=== PATIENT | male | born 1955 | race Caucasian/White ===

== ENCOUNTER 2022-10-15 22:11 | Observation (INO) ==
[2022-10-16] MEDS ORDERED: GLUCAGON 1 MG VIAL IM PRN (00:02)
[2022-10-16] MEDS ORDERED: ACETAMINOPHEN 325 MG TABLET PO PRN (00:02)
[2022-10-16] MEDS ORDERED: ONDANSETRON 4 MG/2 ML VIAL IV PRN (00:02)
[2022-10-16] MEDS ORDERED: DEXTROSE 10% 250 ML BAG IV PRN (00:09)
[2022-10-16] MEDS ORDERED: NITROGLYCERIN SL 0.4 MG TABLET SL PRN (01:57)
[2022-10-16] MEDS ORDERED: oxyCODONE/ACETAMINOPHEN 5-325 MG TABLET PO PRN (02:04)
[2022-10-16] MEDS: LEVOTHYROXINE 75 MCG TABLET PO SCH (05:43)
[2022-10-16 07:52] LABS: Basophils # 0.1 10*3/uL (0.0-0.2); Basophils % 0.7 % (0.0-0.8); Eosinophils # 0.2 10*3/uL (0.0-0.87); Eosinophils % 2.7 % (0.00-10.9); Hematocrit 41.6 VOL% (42.0-52.0); Hemoglobin 13.3 GM/DL (14.0-18.0); Immature Granulocytes % 0.4 %; Immature Granulocytes Absolute 0.03 #; Lymphocytes # 2.9 10*3/uL (1.4-4.0); Lymphocytes % 42.1 % (21.2-54.2); Mean Corpuscular Volume 80.3 FL (87-102); Mean Platelet Volume 10.6 FL (9.6-12.0); Monocytes # 0.5 10*3/uL (0.11-0.8); Monocytes % 7.8 % (1.7-12.7); Neutrophils % 46.3 % (38.7-73.9); Platelet Count 196 T/CUMM (130-400); Red Blood Count 5.18 MC/CUMM (3.8-5.5); White Blood Count 6.77 T/CUMM (4-12)
[2022-10-16] MEDS: INSULIN REGULAR 100 UNIT/ML SUBCUT SCH ×4 (08:05→21:58)
[2022-10-16 08:23] LABS: Albumin 3.9 G/DL (3.4-5.0); Bilirubin,Total 0.5 MG/DL (0.20-1.00); Calcium 9.4 MG/DL (8.5-10.1); Osmolality,Calculated 282.4 MOS/KG (273-304); Potassium 4.3 MMOL/L (3.5-5.1); Risk Ratio 4.59; Total Protein 7.5 G/DL (6.4-8.2); VLDL Cholesterol 53.6 MG/DL
[2022-10-16 08:27] LABS: Thyroid Stimulating Hormone 4.01 uIU/ml (0.358-3.74)
[2022-10-16] MEDS ORDERED: METOPROLOL SUCCINATE XL 50 MG TABLET PO SCH (09:00)
[2022-10-16] MEDS ORDERED: RIVAROXABAN 20 MG TABLET PO SCH (09:00)
[2022-10-16] MEDS: NAPROXEN 250 MG TABLET PO SCH ×2 (09:09→21:54)
[2022-10-16] MEDS: GABAPENTIN 400 MG CAPSULE PO SCH ×2 (09:10→21:54)
[2022-10-16] MEDS: MAGNESIUM OXIDE 400 MG TABLET PO SCH (09:10)
[2022-10-16] MEDS: allopurinoL 100 MG TABLET PO SCH (09:10)
[2022-10-16] MEDS: CLOPIDOGREL 75 MG TABLET PO SCH (09:10)
[2022-10-16] MEDS: PANTOPRAZOLE 40 MG TABLET PO SCH (09:11)
[2022-10-16] MEDS: METOPROLOL SUCCINATE XL 50 MG TABLET PO SCH ×2 (09:22→21:53)
[2022-10-16] MEDS: ASCORBIC ACID 500 MG TABLET PO SCH ×2 (09:22→21:53)
[2022-10-16] MEDS ORDERED: MAGNESIUM SULF RIDER 2 GM/50 ML PREMIX IV PRN (10:06)
[2022-10-16] MEDS ORDERED: POTASSIUM CHLORIDE RIDER 10 MEQ/100 ML PREMIX IV PRN (10:06)
[2022-10-16] MEDS ORDERED: AMIODARONE INJ 150 MG in DEXTROSE 5% 100 ML IV ONE (10:07)
[2022-10-16] MEDS ORDERED: AMIODARONE INJ 450 MG in DEXTROSE 5% 241 ML IV SCH (10:30)
[2022-10-16] MEDS: ASPIRIN EC 81 MG TABLET PO SCH (12:02)
[2022-10-16] MEDS: FLUTICASONE 50 MCG NASAL SPRAY 16 GM BOTTLE BOTH NARES SCH (12:26)
[2022-10-16] MEDS: NITROGLYCERIN 2% OINT 1 INCH/GM PACK TOP SCH ×3 (14:46→21:54)
[2022-10-16] MEDS: AMIODARONE INJ 450 MG in DEXTROSE 5% 241 ML IV SCH (19:59)
[2022-10-16] MEDS ORDERED: ROSUVASTATIN 20 MG TABLET PO SCH (21:00)
[2022-10-16] MEDS ORDERED: AMITRIPTYLINE 25 MG TABLET PO SCH (21:00)
[2022-10-16] MEDS ORDERED: ROSUVASTATIN 10 MG TABLET PO SCH (21:00)
[2022-10-17] MEDS: NITROGLYCERIN 2% OINT 1 INCH/GM PACK TOP SCH ×2 (04:10→11:05)
[2022-10-17 04:48] LABS: Basophils # 0.1 10*3/uL (0.0-0.2); Basophils % 0.6 % (0.0-0.8); Eosinophils # 0.2 10*3/uL (0.0-0.87); Eosinophils % 2.9 % (0.00-10.9); Hematocrit 42.8 VOL% (42.0-52.0); Hemoglobin 13.6 GM/DL (14.0-18.0); Immature Granulocytes % 0.8 %; Immature Granulocytes Absolute 0.06 #; Lymphocytes # 3.3 10*3/uL (1.4-4.0); Lymphocytes % 41.7 % (21.2-54.2); Mean Corpuscular HGB Conc 31.8 GM/DL (32-36); Mean Corpuscular Volume 81.4 FL (87-102); Mean Platelet Volume 11.1 FL (9.6-12.0); Monocytes # 0.6 10*3/uL (0.11-0.8); Monocytes % 8.2 % (1.7-12.7); Neutrophils % 45.8 % (38.7-73.9); Platelet Count 204 T/CUMM (130-400); Red Blood Count 5.26 MC/CUMM (3.8-5.5); Red Cell Distribution Width 14.8 % (9.3-17.3); White Blood Count 7.85 T/CUMM (4-12)
[2022-10-17 05:14] LABS: Calcium 9.2 MG/DL (8.5-10.1); Osmolality,Calculated 277.8 MOS/KG (273-304); Potassium 4.1 MMOL/L (3.5-5.1)
[2022-10-17] MEDS: LEVOTHYROXINE 75 MCG TABLET PO SCH (05:31)
[2022-10-17] MEDS ORDERED: HEPARIN/NACL 0.9% 2 UNITS/ML 2,000 UNIT/1,000 ML BAG IV ONE (06:51)
[2022-10-17] MEDS ORDERED: DIAZEPAM 5 MG TABLET PO ONE (07:30)
[2022-10-17] MEDS ORDERED: diphenhydrAMINE CAP 50 MG CAPSULE PO ONE (07:30)
[2022-10-17] MEDS ORDERED: MIDAZOLAM 2 MG/2 ML VIAL ONE (07:47)
[2022-10-17] MEDS ORDERED: fentaNYL 100 MCG/2 ML VIAL ONE (07:47)
[2022-10-17] MEDS ORDERED: SODIUM CHLORIDE 0.9% 1,000 ML IV SCH (09:00)
[2022-10-17] MEDS: INSULIN REGULAR 100 UNIT/ML SUBCUT SCH ×2 (10:57→13:13)
[2022-10-17] MEDS: NAPROXEN 250 MG TABLET PO SCH (11:04)
[2022-10-17] MEDS: ASCORBIC ACID 500 MG TABLET PO SCH (11:04)
[2022-10-17] MEDS: GABAPENTIN 400 MG CAPSULE PO SCH (11:04)
[2022-10-17] MEDS: CLOPIDOGREL 75 MG TABLET PO SCH (11:04)
[2022-10-17] MEDS: allopurinoL 100 MG TABLET PO SCH (11:04)
[2022-10-17] MEDS: ASPIRIN EC 81 MG TABLET PO SCH (11:04)
[2022-10-17] MEDS: METOPROLOL SUCCINATE XL 50 MG TABLET PO SCH (11:05)
[2022-10-17] MEDS: MAGNESIUM OXIDE 400 MG TABLET PO SCH (11:05)
[2022-10-17] MEDS: PANTOPRAZOLE 40 MG TABLET PO SCH (11:05)
[2022-10-17] MEDS: FLUTICASONE 50 MCG NASAL SPRAY 16 GM BOTTLE BOTH NARES SCH (11:08)
[2022-10-17 12:25] VITALS: BP 126/79
[2022-10-17] MEDS: AMIODARONE INJ 450 MG in DEXTROSE 5% 241 ML IV SCH (13:13)
== END 2022-10-17 16:30 | disposition home or self-care (01) ==
LOC: SUATTDRO 23:43 → N.TELEN 23:43 → INTOOBSV 23:43
PROVIDERS: ADMIT Internal Medicine; ATTEND Internal Medicine